=== PATIENT | female | born 1960 | race American Indian/Alaskan Native ===

== ENCOUNTER 2019-09-02 18:59 | Emergency (ER) | payer SELFPAY ==
[2019-09-02 20:00] VITALS: BP 98/46
== END 2019-09-03 01:00 | disposition left against medical advice (07) ==
LOC: ED 18:59
DX: F32.9 Major depressive disorder, single episode, unspecified (principal); Z53.21 Procedure and treatment not carried out due to patient leaving prior to being seen by health care provider